=== PATIENT | male | born 1960 | race Caucasian/White ===

== ENCOUNTER 2016-08-07 12:30 | Inpatient (IN) | payer OTHER ==
--- NOTE | ~2016-08-07 | DS ---
Unit #: [id number] #: [id number] Patient: KAYLEE WEST [id number] [address] [address] [id number] I MR#: [id number] NAME: KAYLEE WEST ROOM: 220 Age: 56 Sex: M Admission Date: 08/07/2016 : 1960 Discharge Date: 08/10/2016 Attending Physician: Katya Benitez M.D. Primary Care Physician: Katya Benitez M.D. DISCHARGE SUMMARY FINAL DIAGNOSES 1. Liver mass, most likely malignancy: Status post liver biopsy, pathology pending. 2. Hepatitis C. 3. Diabetes mellitus type 2. 4. Hyperlipidemia. 5. Chronic back pain. DISCHARGE MEDICATIONS 1. Percocet 10/325, one tablet p.o. t.i.d. p.r.n. 2. Continue metformin 100 mg p.o. b.i.d. 3. Nicotine patch 14 mg daily. LAB WORKUP ON DISCHARGE Alpha-fetoprotein is 1.8 which is normal. Urinalysis is normal. Sodium 136, potassium 3.7, chloride 99, BUN 9, creatinine 0.7, calcium 7.9, alkaline phos. 219, albumin 2.2. WBC 15.7, hemoglobin 11.5, hematocrit 36.5, and platelet count of 377. Blood cultures were negative. One culture positive, most likely contaminant. SIGNIFICANT RADIOLOGICAL STUDIES DONE DURING HOSPITALIZATION CT scan of the abdomen with contrast which showed a large mass in the right hepatic lobe with multiple smaller satellite lesions strongly suspicious for malignancy, either primary or metastatic. MR of the abdomen was done which showed diffusely infiltrative hypervascular mass throughout the right hepatic lobe. Mass is almost 15 cm in size. Appearance suggests hepatocellular carcinoma. Small lesions scattered throughout the liver compatible with intrahepatic metastatic disease. PROCEDURE DURING HOSPITALIZATION Liver biopsy. Pathology still pending. HOSPITAL COURSE Mr. Kaylee West is a very difficult patient, was admitted because of abdominal pain. The patient was diagnosed with liver mass two months ago but he never followed up. He is a very noncompliant patient. Eventually, Unit #: [id number] #: [id number] Patient: KAYLEE WEST he came to my office and patient was advised to be admitted to the hospital. The patient did not want to be admitted on the day of his visit to office and a few days later he was agreeable. The patient was admitted to hospital. IV pain medication was started. CT scan of the abdomen and MRA of the abdomen was done. Liver biopsy was ordered. Dr. Og from oncology services was consulted. The patient also has been diagnosed with hepatitis C. Most probably he will need hepatitis C treatment. The patient probably has hepatocellular carcinoma. The patient is being discharged home as recommended by Dr. Og, to follow up with oncologist as an outpatient in three to four days. Appointment has been made. VITAL SIGNS on discharge - blood pressure is 133/79, respiratory rate 20, pulse is 90, temperature 98.5. CHEST has fair air entry, decreased at the bases. CVA - S1, S2 positive. ABDOMEN - tenderness is present in the right upper quadrant in the epigastric area. Palpable liver. DISCHARGE INSTRUCTIONS 1. The patient is being discharged home. 2. Medication as per Med Rec. 3. Follow up with Dr. Og on 08/14/16, at 2:30 p.m. 4. Follow up with primary care provider in one to two weeks. 5. Hepatitis C clinic referral as outpatient. 6. PICC line is being discontinued. Please note - I have discussed with patient multiple times at length. Today, he is agreeable to the plan of treatment. Dictated by... Mary Mayo/keerthi TD: 08/11/2016 08:18 JOB #: [id number] DISCHARGE SUMMARY Page 1 of 1 X Katya Benitez MD X DISCHARGE SUMMARY
--- NOTE | ~2016-08-07 | CT134 ---
[facility] A Service of [facility] RADIOLOGY TEXT RESULTS PATIENT: KAYLEE HAAS LOCATION: C2A : 60 UNIT #: [id number] AGE: [address]: Katya Benitez MD SEX: M ORDER DR: [id number] [address] [address] [id number] I MR#: [id number] Acc #: [id number] NAME: KAYLEE HAAS : 1960 SEX: M STUDY DATE/TIME: 08/09/2016 10:33 UNIT: [facility] ROOM: 220 STUDY DESCRIPTION: CT Guide Attending Physician: Katya Benitez M.D. Ordering Physician: Katya Benitez M.D. Primary Care Physician: Katya Benitez M.D. MEDICAL IMAGING REPORT This report is preliminary unless electronic signature is present EXAM CT-guided liver mass biopsy 08/09/2016 INDICATIONS 56-year male with history of large liver mass suspicious for malignancy. Medications per anesthesia. General anesthesia was provided by the Department of Anesthesia. PROCEDURE The risks, benefits and alternatives of the procedure were discussed with the patient and informed consent was obtained. In the procedure room a time-out was performed confirming correct patient and procedure. All elements of maximum sterile-barrier technique utilized according guidelines appropriate for the procedure. TECHNIQUE/FINDINGS Preliminary CT scan was performed identifying the large mass in the liver. The overlying skin was prepped and draped in the usual sterile fashion. 1% lidocaine was utilized to anesthetize the skin and underlying subcutaneous tissues. Next under CT guidance 17-gauge guide needle was advanced into the mass. Through this access, 3 18-gauge core biopsies were obtained and sent to pathology. Needle was removed and a sterile dressing was applied. No immediate complications. IMPRESSION Technically successful CT-guided liver mass biopsy. Dictated by... Gilles Duncan M.D. [facility] A Service of [facility] RADIOLOGY TEXT RESULTS PATIENT: KAYLEE HAAS LOCATION: A : 60 UNIT #: [id number] AGE: [address]: Katya Benitez MD SEX: M ORDER DR: THIS IS AN ELECTRONICALLY VERIFIED REPORT Gilles Duncan M.D. at 08/10/2016 8:58 AM Elijah TD: 08/09/2016 17:21 JOB #: [id number] MEDICAL IMAGING REPORT Page 1 of 1 COPY
--- NOTE | ~2016-08-07 | HP ---
Unit #: [id number] #: [id number] Patient: PEPITO HAAS [id number] [address] [place], [place] [address] [id number] I MR#: [id number] NAME: PEPITO HAAS ROOM: 220 Age: 56 Sex: M Admission Date: 08/07/2016 : 1960 Attending Physician: Katya Benitez M.D. Primary Care Physician: Katya Benitez M.D. HISTORY AND PHYSICAL CHIEF COMPLAINT Abdominal pain. HISTORY OF PRESENTING ILLNESS Mr. Pepito Haas is a 56-year-old male who is a new patient to my practice, who was admitted because of intractable abdominal pain. Patient had a CT scan of the abdomen done in the ER in May and was found to have a liver mass. We have told him multiple times to get a liver protocol CT scan done, but he is very noncompliant with followup appointments and also noncompliant with medications. The only issue he has is pain medicine, and he wants some pain medications. Patient was advised to be admitted in the hospital for further workup because there is a possibility he has metastatic disease, although we are not sure. Patient is kind of noncompliant. He complains of pain level of 6 to 7 out of 10. He does complain of some nausea and some vomiting. Nothing is helping his pain. He did get a prescription from our clinic of hydrocodone last week. According to him, he had to take two tablets at one time to get any relief but it was not helping much. PAST MEDICAL HISTORY 1. Diabetes mellitus type 2. 2. Chronic back pain. 3. Hepatic liver mass on the right lobe which was noted on CT scan done in May 2016. 4. Lung nodule 7 mm in the medial left lower lobe inferiorly. PAST SURGICAL HISTORY 1. Broken neck in the past and had surgery done. 2. History of right knee surgery. HOME MEDICATIONS 1. Metformin 1000 mg twice daily. 2. Hydrocodone 5/325 at 1 tablet twice daily p.r.n. ALLERGIES TRAMADOL. SOCIAL HISTORY Patient is a smoker and has been smoking for the last 30 years. He smokes a half to one pack per day. No history of alcohol abuse and denies any IV drug abuse. FAMILY HISTORY Patient's mother had coronary artery disease and kidney disease. Unit #: [id number] #: [id number] Patient: PEPITO HAAS REVIEW OF SYSTEMS As per History of Presenting Illness. Patient has had weight loss in the past, about 30 pounds. He is not able to eat very well and according to him not able to swallow well. He has a lot of pain in the abdomen and has pain in the right knee and back pain. No skin issues and no dizziness or syncopal episode. PHYSICAL EXAMINATION GENERAL: Patient is lying in bed and does not seem to be in any respiratory distress. VITAL SIGNS: Blood pressure is 146/85, respiratory rate 16, pulse 91, and temperature 98.8. HEENT: Head is normocephalic. CHEST: Decreased air entry bilaterally. CARDIOVASCULAR: S1 and S2 positive. Regular rhythm. ABDOMEN: Tenderness is present in the right upper quadrant and epigastric area, otherwise soft to touch. EXTREMITIES: Negative edema. Pulses are palpable. CENTRAL NERVOUS SYSTEM: Awake, alert, and oriented x3. No focal neurological deficit. DIAGNOSTIC STUDIES LABORATORY: Pending but labs which were done in my office in June 2016 showed hepatitis C positive. LDL 143. BUN 10, creatinine 0.69, and glucose 217. Hemoglobin A1c 9.7. WBC 12.4, hemoglobin 14.6, and hematocrit 46. Vitamin B12 is 602 and folic acid 5.8. ASSESSMENT Patient is being admitted to medical/surgical unit with: 1. Intractable abdominal pain. 2. A 6.9 cm right hepatic lobe mass, possible malignancy. 3. Possible gallbladder disease. 4. Lung nodule 7 mm in the left lobe. 5. Diabetes mellitus type 2 which is uncontrolled with hemoglobin A1c of 9.7. 6. Hepatitis C. 7. Hyperlipidemia. 8. Chronic back pain. PLAN 1. Admit to med/surg unit. CBC, CMP, amylase, and lipase are being done. CT scan multiphasic liver protocol is being done. Interventional Radiology for possible biopsy of the liver mass. 2. Oncologist is being consulted. 3. Ultrasound of the right upper quadrant will be done. 4. Accu-Cheks a.c. and at bedtime with insulin sliding scale, low-dose protocol. 5. Diabetic diet. 6. Nicotine patch 14 mg daily is being started. Nicotine cessation counseling done at length. 7. Percocet 10/325 at 1 tablet q.4 p.r.n. 8. IV Dilaudid 0.5 to 1 mg q.6 p.r.n. 9. IV Zofran 4 mg q.4 p.r.n. 10. IV fluids of normal saline at 50 mL/hour. The plan of care has been discussed with patient. Unit #: [id number] #: [id number] Patient: PEPITO HAAS Dictated by Mary Mayo TD: 08/07/2016 16:46 JOB #: [id number] HISTORY AND PHYSICAL Page 1 of 1 X Katya Benitez MD X HISTORY AND PHYSICAL
--- NOTE | ~2016-08-07 | A ---
[facility] Nutrition Therapy DATE: 08/08/16 Patient: KAYLEE HAAS Physician: YG Address: [address] [place] [address] RD Room/Bed: [address] [place] [address], Zip: [place] [address] Admit Date: 08/07/16 Date of : 60 Height: 6 0 Weight: 270 122.7 NUTRITIONAL ASSESSMENT: REASON: 4 NUTRITION RISK PT RE: 30# WEIGHT LOSS PT IS 56 Y.O. MALE ADMITTED FOR ABD PAIN PMH: NON-COMPLIANT, T2DM, HEPATIC LIVER MASS, HLD Anthropometrics: 6'0", WT: 240# (PER PT) (109 KG), BMI: 32.5 Labs: GLU: 142, ALB: 2.6, LIPASE: 12 Meds: NOVOLOG, ZOFRAN, NACL I/O & Bowel function: 1200/150 Skin Integrity: BRUISES NOTED BUE Estimated Nutrition Needs: INCREASED NUTRIENT NEEDS 2' WEIGHT LOSS NOTED, CURRENT CONDITION Assessment: CHART REVIEWED AND EVENTS NOTED. PT SEEN FOR WEIGHT LOSS. PT REPORTS DECREASED PO INTAKE 2' DECREASED APPETITE SINCE MAY 2016 (LIVER CANCER DIAGNOSIS). PT NOTES EPISODES OF DEPRESSION SINCE DIAGNOSIS. PT REPORTS LOSING ~30# PAST 4-5 MONTHS/11% SEVERE WEIGHT LOSS NOTED. THIS RD ENCOURAGED ADEQUATE KCAL AND PROTEIN INTAKE, PT AGREED TO GLUCERNA SHAKES BID. PT REPORTED NO DIET QUESTIONS AT THIS TIME. RD TO FOLLOW. Dx: INADEQUATE PROTEIN-ENERGY INTAKE R/T DECREASED APPETITE, DEPRESSION, CURRENT CONDITION AEB PT REPORT ABOVE, ~11% SEVERE WEIGHT LOSS NOTED IN PAST 4-5 MONTHS. Intervention: 1. CC DIET 2. GLUCERNA SHAKES (VANILLA) BID Monitoring, Evaluation and Goals: 1. PO INTAKE; CONSUME ~80-100% MEALS AND SUPPLEMENTS W/NO C/O N/V/D 2. WEIGHTS; PREVENT FURTHER UNINTENTIONAL WEIGHT LOSS 3. LABS; WNL MONITOR: -PO INTAKE/APPETITE -WEIGHTS -SUPPLEMENT INTAKE [facility] Nutrition Therapy DATE: 08/08/16 Patient: KAYLEE HAAS Physician: YG Address: [address] [place] [address] RD Room/Bed: [address] [place] [address], Zip: [place] [address] Admit Date: 08/07/16 Date of : 60 Height: 6 0 Weight: 270 122.7 Recommendations: 1. PLEASE ORDER VANILLA GLUCERNA SHAKES BID W/MEALS 2. ENCOURAGE PO INTAKE RD WILL F/U PER PROTOCOL PT IS MODERATELY COMPROMISED Respectfully, SANCHEZ MOISE MS, RD, LD [facility] cc: client file
--- NOTE | ~2016-08-07 | US6 ---
[facility] A Service of [facility] RADIOLOGY TEXT RESULTS PATIENT: KAYLEE HAAS LOCATION: C2A 220- : 60 UNIT #: [id number] AGE: [address]: Katya Benitez MD SEX: M ORDER DR: [id number] [facility] [address]. [place], [place] [address] [id number] I MR#: [id number] Acc #: [id number] NAME: KAYLEE HAAS : 1960 SEX: M STUDY DATE/TIME: 08/07/2016 18:10 UNIT: C2A ROOM: 220 STUDY DESCRIPTION: US Abdominal Limited Attending Physician: Katya Benitez M.D. Ordering Physician: Katya Benitez M.D. Primary Care Physician: Katya Benitez M.D. MEDICAL IMAGING REPORT This report is preliminary unless electronic signature is present EXAM Right upper quadrant ultrasound, 08/07/2016 HISTORY Liver mass. Chronic right upper quadrant pain, recently increased. FINDINGS Ultrasound examination of the right upper quadrant demonstrates ill-defined irregularly marginated hypoechoic mass in the right hepatic lobe, corresponding to the abnormality noted on CT abdomen 05/27/2016. Given the indistinct margins, direct comparison to the size of the lesion on the prior study is limited. Differential considerations again include primary malignancy or metastatic disease and further characterization with MRI or multiphase CT should be considered. No additional hepatic mass is demonstrated. Survey of the right kidney demonstrates no hydronephrosis. Common bile duct measures 5 mm in diameter. Gallbladder is unremarkable. IMPRESSION Ill-defined hypoechoic lobulated mass in the right hepatic lobe corresponds to similar appearing lesion in the right hepatic lobe on CT 05/27/2016. The indistinct margins limit definitive measurement, but this appears similar in size compared to the prior study. Broad differential considerations again include primary malignancy or metastatic disease. Further characterization could be performed with multiphase CT or contrast-enhanced MRI of the liver. Dictated by... Aldo Bonilla M.D. THIS IS AN ELECTRONICALLY VERIFIED REPORT Aldo Bonilla M.D. at 08/07/2016 10:37 PM [facility] A Service of [facility] RADIOLOGY TEXT RESULTS PATIENT: KAYLEE HAAS LOCATION: A 220-01 : 60 UNIT #: [id number] AGE: [address]: Katya Benitez MD SEX: M ORDER DR: RUDDY/eddie TD: 08/07/2016 21:59 JOB #: [id number] MEDICAL IMAGING REPORT Page 1 of 1 COPY
--- NOTE | ~2016-08-07 | XA166 ---
[facility] A Service of [facility] RADIOLOGY TEXT RESULTS PATIENT: KAYLEE HAAS LOCATION: C2A : 60 UNIT #: [id number] AGE: [address]: Katya Benitez MD SEX: M ORDER DR: [id number] [facility] [address] [place], [place] [address] [id number] I MR#: [id number] Acc #: [id number] NAME: KAYLEE HAAS : 1960 SEX: M STUDY DATE/TIME: 08/08/2016 10:47 UNIT: C2A ROOM: 220 STUDY DESCRIPTION: XA PICC Line Placement WO Port Attending Physician: Katya Benitez M.D. Ordering Physician: Jens Og M.D. Primary Care Physician: Katya Benitez M.D. MEDICAL IMAGING REPORT This report is preliminary unless electronic signature is present EXAM Right-sided PICC line placement. INDICATION Need for IV access on a patient with a large right hepatic mass. This was initially seen on a CT from December 2015 and has enlarged. PRE-PROCEDURE The procedure was explained to the patient and/or patient senior outside sales representative including risks, benefits, potential complications and potential for alternative forms of treatment. Informed consent was obtained, and prior to initiating the procedure a formal timeout procedure was performed. PROCEDURE Using full standard sterile barrier technique, including caps, gowns, gloves, masks, as well as sterile skin preparation and standard sterile draping, the right arm was prepped and draped in the usual fashion, and real-time sterile ultrasound guidance was used to localize an arm vein and to confirm vessel patency. A hard copy ultrasound image was recorded. After local anesthesia with 1% Xylocaine, the vein was punctured using real-time sterile ultrasound guidance, and an 0.018 guidewire was advanced into the superior vena cava, using fluoroscopic guidance. A 4-Croatian single-lumen PICC was then measured and deployed with the tip positioned in the superior vena cava. The position of the line was documented with a radiographic image. The line was secured in place with an adhesive dressing and an antibiotic patch was applied. Total fluoro time was 0.1 minutes. AK was 2 mGy. IMPRESSION Successful placement of a 4-Croatian single-lumen PowerPICC via the arm under ultrasound and fluoroscopic guidance. The tip of the PICC is in good position in the superior vena cava. [facility] A Service of [facility] RADIOLOGY TEXT RESULTS PATIENT: KAYLEE HAAS LOCATION: [facility] [address] : [birth year] UNIT #: [id number] AGE: [address]: Katya Benitez MD SEX: M ORDER DR: Dictated by... Mariam Carroll M.D. THIS IS AN ELECTRONICALLY VERIFIED REPORT Mariam Carroll M.D. at 08/10/2016 6:30 PM AFF/evelyn TD: 08/10/2016 12:23 JOB #: [id number] MEDICAL IMAGING REPORT Page 1 of 1 COPY
--- NOTE | ~2016-08-07 | CO ---
Unit #: [id number] #: [id number] Patient: KAYLEE HAAS [id number] [facility] [address] [facility] [facility] [address]. [place], [place] [address] [id number] I MR#: [id number] NAME: KAYLEE HAAS ROOM: 220 Age: 56 Sex: M Admission Date: 08/07/2016 : 1960 Attending Physician: Katya Benitez M.D. Primary Care Physician: Katya Benitez M.D. Consultation Date: 08/08/2016 CONSULTATION REPORT REASON FOR EVALUATION Hepatic mass, please evaluate. HISTORY OF PRESENT ILLNESS This 56-year-old gentleman upon waking him up from sleep, he sounded very angry, distracted, so I waited and then we started all over again. Basically, did come to the emergency room at [facility] with abdominal pain. CT scan was done and he was informed that there is a liver mass. Now he is all upset because he did not keep his appointment for a repeat CT scan and/or MRI which had been scheduled before, comes in now with intractable pain on the right side and wants quick answers. He states that he has been lying here for hours and there are no answers and he had just come last evening late evening and this morning I am interviewing him before 9 a.m. He states that he was taken to CT scan room where they could not start an IV and showed me multiple bruises on the right arm and states that he does not want IVs anymore. PAST MEDICAL HISTORY 1. Diabetes type 2. 2. Chronic backache. Otherwise, no major illnesses. PAST SURGICAL HISTORY 1. History of fracture in his neck and surgery. 2. Knee surgery. CHRONIC MEDICATIONS 1. Hydrocodone. 2. Metformin. ALLERGIES Tramadol. SOCIAL HISTORY Three-decade history of smoking. No alcohol usage. He has a young child, 7 years old, at home. I did not ask for the rest of the family history. FAMILY HISTORY Positive for coronary artery disease, kidney disease, and is negative for hepatocellular disease. REVIEW OF SYSTEMS Intractable pain in his side and restlessness, anxiety, anger, and Unit #: [id number] #: [id number] Patient: KAYLEE HAAS although he states he hates delays, he was told of this liver mass over two months ago and did not pursue it. Otherwise, 6 or 8 systems are within normal limits. PHYSICAL EXAMINATION HEENT: He is not jaundiced. LYMPH: No palpable nodes. LUNGS: Clear. HEART: Distant S1, S2. ABDOMEN: Liver is 13-14 cm midclavicular line. There is no ascites. No palpable spleen. RECTAL: Not done. NEUROLOGIC: Grossly intact. DIAGNOSTIC STUDIES LABORATORY: Glucose 142, BUN 12, creatinine 0.7, sodium 136, potassium 3.7, chloride 99, CO2 is 28. Pro time 12.7, INR 1.2. Hemoglobin 12.3, hematocrit 38.6, white count 16.3, platelets 394,000. IMAGING: CT angio of the chest, done 05/27/2016, showed no pulmonary embolus. There was a 7 mm indeterminate pulmonary nodule in the medial left lower lobe inferiorly. CT abdomen, done 05/27/2016, did show a multiloculated hypo-enhancing mass inferior right hepatic lobe measuring 6.9 cm. It is not a benign simple cyst and they read it as indeterminate but major consideration include hepatic malignancy as well as metastatic disease. Abnormally prominent portacaval nodes with central necrosis which is consistent with metastatic disease. IMPRESSION This 56-year-old gentleman who is fairly angry about delays, has been admitted last evening and we promptly saw him in the morning. All the scans have been ordered including biopsy. He has poor venous access so, at this point, I told him about a PICC line and he agrees. We will also do alpha-fetoprotein or AFP, an MRI of the liver with and without contrast, and most probably will send him over to the hepatitis transplant clinic down[place] because he has active hepatitis C and most probably has a hepatocellular carcinoma. All of this was explained to him very seriously. He understood that this process will require two to three days. He is in full agreement now and we will await pathology. Dictated by.Francisco J. Jens Og M.D. KAYLEIGH/erlinda TD: 08/08/2016 15:29 JOB #: [id number] Unit #: [id number] #: [id number] Patient: KAYLEE HAAS CONSULTATION REPORT Page 1 of 1 X Jens Og MD CONSULTATION REPORT
--- NOTE | ~2016-08-07 | CT6 ---
[facility] A Service of [facility] & [facility] RADIOLOGY TEXT RESULTS PATIENT: KAYLEE HAAS LOCATION: C2A : 60 UNIT #: [id number] AGE: [address]: Katya Benitez MD SEX: M ORDER DR: [id number] [facility] [address] [facility]. [place], [place] [address] [id number] MR#: [id number] Acc #: [id number] NAME: KAYLEE HAAS : 1960 SEX: M STUDY DATE/TIME: 08/08/2016 11:30 UNIT: C2A ROOM: 220 STUDY DESCRIPTION: CT Abdomen WWo Cont Attending Physician: Katya Benitez M.D. Ordering Physician: Katya Benitez M.D. Primary Care Physician: Katya Benitez M.D. MEDICAL IMAGING REPORT This report is preliminary unless electronic signature is present EXAM Abdomen and pelvis CT with and without contrast with multiphase postcontrast evaluation of the liver. DATE OF EXAM 08/08/2016 HISTORY 7 cm liver mass noted on routine abdomen and pelvis scan from 05/27/2016. Abdominal pain, nausea and vomiting. Evaluate liver mass. TECHNIQUE Axial images were obtained through the abdomen pre and postcontrast with postcontrast scanning through the pelvis as well. 100 mL of Isovue was used. NOTE: This CT exam was performed with one or more of the following radiation dose reduction techniques: automatic exposure control, adjustment of mA and/or kV according to patient size, and iterative reconstruction. FINDINGS There is a large multilobular mass with multiple satellite nodules occupying much of the right hepatic lobe particularly segments 6 and 7. The largest component of the mass measures 9.3 x 11.1 cm in transverse diameter, again with multiple smaller satellite nodules. This is accompanied by adenopathy. There is a rim enhancing 1.5 cm lymph node just below the diaphragm adjacent to the inferior vena cava. There are multiple enlarged lymph nodes at the brandon hepatis. At least 5 bulky rim enhancing nodes are seen generally measuring between 2 and 3.5 cm in diameter. Enlarged lymph nodes are also seen in the retroperitoneum, the largest being just below the renal veins and measuring 1.7 cm in diameter. Abnormal nodes extend down to a level just above the aortic bifurcation. No enlarged lymph nodes are seen in the pelvis. No distended bowel loops are seen. There is no evidence of mass in the pancreas, and no adrenal STS. [facility] A Service of [facility] RADIOLOGY TEXT RESULTS PATIENT: KAYLEE HAAS LOCATION: A 220-01 : 60 UNIT #: [id number] AGE: [address]: Katya Benitez MD SEX: M ORDER DR: masses are seen. No skeletal lesions are seen in the spine. IMPRESSION Large mass in the right hepatic lobe with multiple smaller satellite lesions strongly suspicious for malignancy, either primary or metastatic. Infectious etiology should also be included in the differential diagnosis. There is adjacent significant adenopathy in the retroperitoneum and brandon hepatis. Recommend tissue sampling. Dictated by... Kb Strange M.D. THIS IS AN ELECTRONICALLY VERIFIED REPORT Kb Strange M.D. at 08/08/2016 6:48 PM BRONWYN/madhavi TD: 08/08/2016 18:17 JOB #: [id number] MEDICAL IMAGING REPORT Page 1 of 1 COPY
--- NOTE | ~2016-08-07 | MR2 ---
[facility] A Service of [facility] & [facility] RADIOLOGY TEXT RESULTS PATIENT: KAYLEE HAAS LOCATION: C2A - : 60 UNIT #: [id number] AGE: [address]: Katya Benitez MD SEX: M ORDER DR: [id number] [place] [id number] [place] [facility]. [place], [place] [address] [id number] MR#: [id number] Acc #: [id number] NAME: KAYLEE HAAS : 1960 SEX: M STUDY DATE/TIME: 08/08/2016 17:59 UNIT: C2A ROOM: 220 STUDY DESCRIPTION: MR Abdomen WWo Cont Attending Physician: Katya Benitez M.D. Ordering Physician: Jens Og M.D. Primary Care Physician: Katya Benitez M.D. MRI CENTER REPORT This report is preliminary unless electronic signature is present. EXAM MR abdomen, 08/08/[address] scan of the abdomen. Liver mass. Right upper quadrant abdominal pain for 3 weeks. TECHNIQUE Multiplanar MRI of the abdomen with and without IV contrast (20 mL MultiHance IV contrast. COMPARISON CT abdomen dated 08/08/2016. FINDINGS There is a diffusely infiltrative mass throughout the majority of the right hepatic lobe. The mass is hypervascular with central necrosis. The diffusely infiltrative mass measures at least 15.3 cm x 10.7 cm x 15.6 cm on the MRI. The lesion has associated washout on the delayed images. This is most consistent with an infiltrative hepatocellular carcinoma. There is a slightly nodular contour to the inferior right hepatic lobe which supports background cirrhosis, however this could be artifact due to the large mass and a "pseudocirrhosis." There is no intrahepatic or extrahepatic biliary dilatation. The hepatic vasculature is grossly patent. There is motion artifact on the exam which limits evaluation of the peripheral intrahepatic vessels. There is abnormal periportal lymphadenopathy. A 2.7 cm index lesion previously measured 2.4 cm. A 3.2 cm node previously measured 2.3 cm. The pancreas, spleen, and adrenal glands are within normal limits. STS. [facility] A Service of [facility] & [facility] RADIOLOGY TEXT RESULTS PATIENT: KAYLEE HAAS LOCATION: A 220-01 : 60 UNIT #: [id number] AGE: [address]: Katya Benitez MD SEX: M ORDER DR: Kidneys are within normal limits. The bowel is not dilated. The gallbladder is not distended. There is trace ascites in the upper abdomen. No abnormal bone marrow signal. Not mentioned above, there are multiple satellite nodules scattered throughout the liver consistent with intrahepatic metastatic disease. IMPRESSION 1. Diffusely infiltrative hypervascular mass throughout the right hepatic lobe. This mass is difficult to measure, however is estimated at least 15 cm in size. Overall imaging appearance would suggest hepatocellular carcinoma, however it There is spontaneous phasic and augmented flow not definitive. 2. Innumerable small lesions scattered throughout the liver compatible with intrahepatic metastatic disease. 3. Enlarged periportal lymph nodes are likely metastatic. 4. Motion artifact degrades evaluation of the intrahepatic vasculature, however, the hepatic vasculature does appear to be patent. Dictated by... Jackson Currie M.D. THIS IS AN ELECTRONICALLY VERIFIED REPORT Jackson Currie M.D. at 08/09/2016 3:03 PM ADRIANNE/eddie TD: 08/08/2016 23:46 JOB #: [id number] MRI CENTER REPORT Page 1 of 1 COPY
[~2016-08-07 12:30] MED LIST: ALBUTEROL17 GM INH; AMOXICILLIN PO; B/P MEDICATION; BACLOFEN10 MG PO; BACTRIM DS TABL1 TA1 PO; CHOLESTEROL PILL; DARVOCET-N 1001 TAB PO; DELSYM30 MG/5 ML PO; DICLOFENAC PO; DOLOBID PO; DOXYCYCLINE HY100 M1 PO; ERY-TAB500 MG PO; FISH OIL 1,0001 CAP PO; HYDROCODON-ACE1 EAC7 PO; HYDROCODONE-APA1 T41 PO; IBUPROFEN PO; LORTAB 5/500 TA1 TA1 PO; LORTAB 7.5-5001 TAB PO; MEDROL DOSEPAK4 MG PO; MEDROL PO; METFORMIN HCL1000 M1 PO; MOBIC PO; NIACIN PO; NO MEDICATIONS; NORCO 5/325 TAB1 TAB PO; OXYCODONE; PERCOCET 5-3251 TAB PO; PERCOCET7.5 PO; ROBITUSSIN A-C-S1 ML PO; TYLOX 5/500 CAP1 CAP PO; ULTRAM PO; VICODIN 5/500 T1 TAB PO; VICODIN ES 7.51 EAC1 PO; ZESTORETIC 20/21 TAB PO; [UNRECOGNIZED DRUG - REMARK]; [UNRECOGNIZED DRUG - REMARK]
[2016-08-07 17:31] LABS: BUN/CREATININE RATIO 17.14; CALCIUM SERUM 8.7 mg/dL (8.4-10.2); CREATININE SERUM 0.7 mg/dL (0.6-1.4); GLOM FILT RATE Estimated 105.5 mL/min (>60); POTASSIUM 3.7 mmol/L (3.5-5.1)
[2016-08-07 19:50] LABS: HEMATOCRIT 39.8 % (38.0-50.0); HEMOGLOBIN 12.6 gm/dL (13.0-16.0); MEAN CELL VOLUME 81.3 FL (83-96); MEAN CORPUSCULAR HEMOGLOBIN 25.7 PG (28-34); MEAN CORPUSCULAR HGB CONC 31.6 g/dL (30-36); MEAN PLATELET VOLUME 9.7 FL (6.5-11.5); RED BLOOD COUNT 4.9 X10e (3.90-5.60); RED CELL DISTRIBUTION WIDTH 15.3 % (11.0-15.5); WHITE BLOOD COUNT 17.5 X10e3 (4.0-10.5)
[2016-08-07 20:10] LABS: ALBUMIN SERUM 2.6 g/dL (3.5-5.0); BILIRUBIN, DIRECT 0.1 mg/dL (0.0-0.2); BILIRUBIN,INDIRECT 0.5 mg/dL (0.0-0.9); BILIRUBIN,TOTAL 0.6 mg/dL (0.2-2.0); PROTEIN TOTAL SERUM 7.2 g/dL (6.0-8.3)
[2016-08-08 08:05] LABS: HEMATOCRIT 38.6 % (38.0-50.0); HEMOGLOBIN 12.3 gm/dL (13.0-16.0); MEAN CELL VOLUME 81.2 FL (83-96); MEAN PLATELET VOLUME 9.4 FL (6.5-11.5); RED BLOOD COUNT 4.75 X10e (3.90-5.60); RED CELL DISTRIBUTION WIDTH 15.2 % (11.0-15.5); WHITE BLOOD COUNT 16.3 X10e3 (4.0-10.5)
[2016-08-08 08:15] LABS: INR 1.2; PARTIAL THROMBOPLASTIN TIME 31.7 SECONDS (23.5-31.3); PROTHROMBIN TIME (PATIENT) 12.7 SECONDS (9.6-11.5)
[2016-08-09 06:57] LABS: INR 1.2; PARTIAL THROMBOPLASTIN TIME 30.8 SECONDS (23.5-31.3); PROTHROMBIN TIME (PATIENT) 12.2 SECONDS (9.6-11.5)
[2016-08-09 06:58] LABS: HEMATOCRIT 36.4 % (38.0-50.0); HEMOGLOBIN 11.4 gm/dL (13.0-16.0); MEAN CORPUSCULAR HEMOGLOBIN 25.4 PG (28-34); MEAN CORPUSCULAR HGB CONC 31.3 g/dL (30-36); MEAN PLATELET VOLUME 9.4 FL (6.5-11.5); RED BLOOD COUNT 4.49 X10e (3.90-5.60); RED CELL DISTRIBUTION WIDTH 15.5 % (11.0-15.5); WHITE BLOOD COUNT 15.5 X10e3 (4.0-10.5)
[2016-08-10 06:10] LABS: HEMATOCRIT 36.5 % (38.0-50.0); HEMOGLOBIN 11.5 gm/dL (13.0-16.0); MEAN CELL VOLUME 81.3 FL (83-96); MEAN CORPUSCULAR HEMOGLOBIN 25.6 PG (28-34); MEAN CORPUSCULAR HGB CONC 31.5 g/dL (30-36); MEAN PLATELET VOLUME 9.3 FL (6.5-11.5); RED BLOOD COUNT 4.49 X10e (3.90-5.60); RED CELL DISTRIBUTION WIDTH 15.6 % (11.0-15.5); WHITE BLOOD COUNT 15.7 X10e3 (4.0-10.5)
[2016-08-10 06:25] LABS: ALBUMIN SERUM 2.2 g/dL (3.5-5.0); BILIRUBIN,TOTAL 0.4 mg/dL (0.2-2.0); BUN/CREATININE RATIO 12.85; CALCIUM SERUM 7.9 mg/dL (8.4-10.2); CREATININE SERUM 0.7 mg/dL (0.6-1.4); GLOM FILT RATE Estimated 105.5 mL/min (>60); POTASSIUM 3.7 mmol/L (3.5-5.1); PROTEIN TOTAL SERUM 6.1 g/dL (6.0-8.3)
[2016-08-10 10:19] LABS: URINE APPEARANCE CLOUDY; URINE BILIRUBIN NEG (NEG); URINE BLOOD NEG (NEG); URINE COLOR YELLOW; URINE GLUCOSE NEG (NEG); URINE KETONE NEG (NEG); URINE LEUKOCYTE ESTERASE NEG (NEG); URINE NITRATE NEG (NEG); URINE PROTEIN NEG (NEG); URINE SPECIFIC GRAVITY 1.017 (1.003-1.035)
[2016-08-10 10:22] LABS: CULTURE INDICATED? NO
[2016-08-10] MEDS ORDERED: NICOTINE TRANSD14 MG TOP (15:24)
[2016-08-10] MEDS ORDERED: PERCOCET10 PO (15:25)
== END 2016-08-10 16:11 | disposition home or self-care (01) | DRG 437 ==
LOC: C2A 12:30
PROVIDERS: Internal Medicine; Physician Assistant Medical; Radiology Diagnostic Radiology
PROC: 0FB03ZX Excision of Liver, Percutaneous Approach, Diagnostic (ICD-10-PCS; principal; 2016-08-08)
PROC: 02HV33Z Insertion of Infusion Device into Superior Vena Cava, Percutaneous Approach (ICD-10-PCS; 2016-08-08)
PROC: B518YZA Fluoroscopy of Superior Vena Cava using Other Contrast, Guidance (ICD-10-PCS; 2016-08-08)
PROC: B548ZZA Ultrasonography of Superior Vena Cava, Guidance (ICD-10-PCS; 2016-08-08)
PROC: 0FB03ZX Excision of Liver, Percutaneous Approach, Diagnostic (ICD-10-PCS; 2016-08-09)
DX: C78.7 Secondary malignant neoplasm of liver and intrahepatic bile duct (principal); E11.65 Type 2 diabetes mellitus with hyperglycemia; R16.0 Hepatomegaly, not elsewhere classified; Z79.84 Long term (current) use of oral hypoglycemic drugs; R91.1 Solitary pulmonary nodule; M54.9 Dorsalgia, unspecified; G89.29 Other chronic pain; F17.210 Nicotine dependence, cigarettes, uncomplicated; B19.20 Unspecified viral hepatitis C without hepatic coma; E78.5 Hyperlipidemia, unspecified; Z91.14 Patient's other noncompliance with medication regimen
CPT/HCPCS: 74170; 74183; 76705; 76937; 77001; 77012; 80048; 80053; 80076; 81003; 82105; 82150; 82947; 83690; 85027; 85610; 85730; 87040; 88307; A9577; C1751; J1170; J1815; J2250; J3010; Q9967